=== PATIENT | male | born 1995 | race Hispanic/Latino ===

== ENCOUNTER 2022-07-06 10:56 | Emergency (ER) | payer BC ==
[2022-07-06] MEDS ORDERED: ONDANSETRON 4 MG (ODT) TAB ONE (13:46)
[2022-07-06] MEDS ORDERED: MECLIZINE HCL 12.5 MG TAB ONE (13:48)
[2022-07-06] MEDS ORDERED: NA CHLORIDE 0.9% 1,000 ML ONE (13:48)
[2022-07-06 13:55] LABS: Absolute Lymphocytes (CBC) 0.8 K/uL (0.7-4.9); Hematocrit 40.2 % (39.6-49.0); Lymphocytes % 5.5 % (15.3-44.8); MCV 84.7 fL (80-100); MPV 8.4 fL (7.6-11.3); RBC Red Blood Cell Count 4.75 M/uL (4.33-5.43)
[2022-07-06 14:11] LABS: Potassium 3.9 mmol/L (3.5-5.1)
--- NOTE | 2022-07-06 14:51 | RAD REPORT ---
EXAM DESCRIPTION: CT - Head Brain Wo Cont - 07/06/2022 2:39 pm CLINICAL HISTORY: dizziness, ringing in right ear COMPARISON: No comparisons TECHNIQUE: All CT scans are performed using dose optimization technique as appropriate and may inclu de automated exposure control or mA/KV adjustment according to patient size. FINDINGS: No intracranial hemorrhage, hydrocephalus or extra-axial fluid collection.No areas of brai n edema or evidence of midline shift. The paranasal sinuses and mastoids are clear. The calvarium is intact. IMPRESSION: No acute intracranial abnormality.
--- NOTE | 2022-07-06 15:33 | EDPHYS ---
Physician Documentation [facility] Name: Chao Odom Age: 26 yrs Sex: Male : 1995 Arrival Date: 07/06/2022 Time: 11:08 Bed DIS4 Private MD: ED Physician Eleuterio Pandya HPI: 07/06 23:55 This 26 yrs old Male presents to ER via Wheelchair with complaints of kb Nausea/Vomiting. 23:54 Severity of symptoms: At their worst the symptoms were moderate in the emergency kb department the symptoms are unchanged. The patient has not experienced similar symptoms in the past. The patient has not recently seen a physician. Patient reports ringing in the ear that started on Monday, went to [place] [facility] but was not diagnosed with anything. Today started having dizziness with nausea and vomiting. Ringing has been constant since onset.. 23:55 The patient presents with tinnitus. The complaints affect the right ear. Onset: The kb symptoms/episode began/occurred 4 day(s) ago. Modifying factors: The symptoms are alleviated by nothing, the symptoms are aggravated by nothing. Associated signs and symptoms: Pertinent positives: tinnitus. Historical: - Allergies: 12:11 No Known Allergies; vg1 - Home Meds: 12:11 None [Active]; vg1 - PMHx: 12:11 None; vg1 - PSHx: 12:11 None; vg1 - Immunization history:: Client reports having NOT received the Covid vaccine. - Social history:: Smoking status: Reported history of juuling and/or vaping. ROS: 23:53 ENT: Negative for injury, pain, and discharge. kb 23:53 Abdomen/GI: Positive for nausea and vomiting. 23:53 Neuro: Positive for dizziness, tinnitus. 23:53 All other systems are negative. Exam: 14:10 Constitutional: This is a well developed, well nourished patient who is awake, alert, kb and in no acute distress. Head/Face: Normocephalic, atraumatic. Eyes: Pupils equal round and reactive to light, extra-ocular motions intact. Lids and lashes normal. Conjunctiva and sclera are non-icteric and not injected. Cornea within normal limits. Periorbital areas with no swelling, redness, or edema. ENT: Moist Mucous membranes Cardiovascular: Regular rate and rhythm with a normal S1 and S2. No gallops, murmurs, or rubs. No pulse deficits. Respiratory: Respirations even and unlabored. No increased work of breathing. Talking in full sentences Abdomen/GI: Soft, non-tender. No distention Skin: Warm, dry with normal turgor. Normal color. MS/ Extremity: Pulses equal, no cyanosis. Neurovascular intact. Full, normal range of motion. Neuro: Awake and alert, GCS 15, oriented to person, place, time, and situation. Moves all extremities. Normal gait. Psych: Awake, alert, with orientation to person, place and time. Behavior, mood, and affect are within normal limits. 14:10 ENT: External ear(s): are unremarkable, Ear canal(s): are normal, TM's: are normal. 14:10 ECG was reviewed by the Attending Physician. Vital Signs: 12:10 BP 103 / 57; Pulse 72; Resp 16; Temp 97.7(TE); Pulse Ox 100% on R/A; Weight 54.43 kg; vg1 Height 5 ft. 8 in. (172.72 cm); Pain 0/10; 15:36 BP 109 / 55; Pulse 59; Resp 16; Temp 98.0; Pulse Ox 100% ; kc6 12:10 Body Mass Index 18.25 (54.43 kg, 172.72 cm) vg1 MDM: 13:32 Patient medically screened. kb 14:11 Data reviewed: vital signs, nurses notes. Data interpreted: Pulse oximetry: on room air kb is 100 %. Interpretation: normal. 15:28 Counseling: I had a detailed discussion with the patient and/or guardian regarding: the kb historical points, exam findings, and any diagnostic results supporting the discharge/admit diagnosis, lab results, radiology results, the need for outpatient follow up, a family practitioner, to return to the emergency department if symptoms worsen or persist or if there are any questions or concerns that arise at home. 15:29 ED course: Pt has appt with ENT for follow up tomorrow. . kb 07/06 13:32 Order name: CBC with Diff kb 07/06 13:32 Order name: Basic Metabolic Panel; Complete Time: 14:13 kb 07/06 13:41 Order name: CPK; Complete Time: 14:21 kb 07/06 14:13 Order name: CT Head Brain wo Cont; Complete Time: 14:53 kb 07/06 13:32 Order name: IV Start; Complete Time: 13:49 kb 07/06 13:33 Order name: EKG; Complete Time: 13:34 kb 07/06 13:33 Order name: EKG - Nurse/Tech; Complete Time: 14:15 kb EC:10 Rate is 63 beats/min. Rhythm is regular. QRS [place] is Normal. [place] interval is normal at kb 158 msec. QRS interval is normal at 104 msec. QT interval is normal at 446 msec. Administered Medications: 13:37 Drug: Zofran (Ondansetron) 4 mg Route: PO; kb 15:39 Follow up: Response: No adverse reaction ss 13:45 Drug: NS 0.9% 1000 ml Route: IV; Rate: 1000 ml; Site: right antecubital; kb 15:39 Follow up: IV Status: Completed infusion ss 13:46 Drug: Meclizine 25 mg Route: PO; kb 15:39 Follow up: Response: No adverse reaction ss Disposition Summary: 07/06/22 15:31 Discharge Ordered Location: Home kb Condition: Stable kb Diagnosis - Tinnitus, right ear kb - Dizziness and giddiness kb Followup: kb - With: Emergency Department - When: As needed - Reason: Worsening of condition Followup: kb - With: Private Physician - When: 2 - 3 days - Reason: Recheck today's complaints, Continuance of care, Re-evaluation by your physician Discharge Instructions: - Discharge Summary Sheet kb - Tinnitus kb - Vertigo, [id number] kb - Dizziness, [id number] kb Forms: - Medication Reconciliation Form kb - Thank You Letter kb - Antibiotic Education kb - Prescription Opioid Use kb - Work release form kb Prescriptions: - Meclizine 25 mg Oral Tablet - take 1 tablet by ORAL route every 8 hours As needed; 30 tablet; Refills: 0, kb Product Selection Permitted - Zofran 4 mg Oral Tablet - take 1 tablet by ORAL route every 8 hours As needed; 20 tablet; Refills: 0, kb Product Selection Permitted Addendum: 07/07/2022 20:09 Co-signature as Attending Physician, Eleuterio Pandya MD. r n Signatures: Dispatcher [employer] EDJennifer Valles, TREATING ENGINEER-C TREATING ENGINEER-Sidb Eleuterio Pandya MD MD rn Garcia, Victoria, RN RN vg1 Sharmaine Cortez RN ss
--- NOTE | 2022-07-06 15:33 | ER ---
Nurse's Notes [facility] Name: Chao Odom Age: 26 yrs Sex: Male : 1995 Arrival Date: 07/06/2022 Time: 11:08 Bed DIS4 Private MD: Diagnosis: Tinnitus, right ear;Dizziness and giddiness Presentation: 07/06 12:10 Chief complaint: Patient states: Right ear ringing x 2 days with dizziness and NV. vg1 Coronavirus screen: Vaccine status: Patient reports being unvaccinated. Client denies travel out of the [place] in the last 14 days. Ebola Screen: Patient denies exposure to infectious person. Patient denies travel to an Ebola-affected area in the 21 days before illness onset. Initial Sepsis Screen: Does the patient meet any 2 criteria? No. Patient's initial sepsis screen is negative. Does the patient have a suspected source of infection? No. Patient's initial sepsis screen is negative. Risk Assessment: Do you want to hurt yourself or someone else? Patient reports no desire to harm self or others. Onset of symptoms was July 04, 2022. 12:10 Method Of Arrival: Wheelchair vg1 12:10 Acuity: MYAH 3 vg1 Triage Assessment: 12:11 General: Appears uncomfortable, Behavior is calm, cooperative. Pain: Complains of pain vg1 in right ear Pain began 2-3 days ago. EENT: Reports ringing in right ear. GI: Pt is actively vomiting Reports nausea, vomiting. Historical: - Allergies: 12:11 No Known Allergies; vg1 - Home Meds: 12:11 None [Active]; vg1 - PMHx: 12:11 None; vg1 - PSHx: 12:11 None; vg1 - Immunization history:: Client reports having NOT received the Covid vaccine. - Social history:: Smoking status: Reported history of juuling and/or vaping. Screenin:41 Abuse screen: Denies threats or abuse. Denies injuries from another. Nutritional ss screening: No deficits noted. Tuberculosis screening: Never had TB. Fall Risk None identified. Assessment: 14:41 Reassessment: Back from CT at this time. ss Vital Signs: 12:10 BP 103 / 57; Pulse 72; Resp 16; Temp 97.7(TE); Pulse Ox 100% on R/A; Weight 54.43 kg; vg1 Height 5 ft. 8 in. (172.72 cm); Pain 0/10; 15:36 BP 109 / 55; Pulse 59; Resp 16; Temp 98.0; Pulse Ox 100% ; kc6 12:10 Body Mass Index 18.25 (54.43 kg, 172.72 cm) vg1 ED Course: 11:08 Patient arrived in ED. mr 12:11 Triage completed. vg1 12:11 Arm band placed on. vg1 13:32 Jennifer Jaffe FNP-C is [facility]. kb 13:32 Eleuterio Pandya MD is Attending Physician. kb 13:49 Inserted saline lock: 20 gauge in right antecubital area, using aseptic technique. kc6 Blood collected. 13:49 CPK Sent. kc6 13:49 Basic Metabolic Panel Sent. kc6 13:49 CBC with Diff Sent. kc6 14:40 CT Head Brain wo Cont In Process Unspecified. EDMS 14:41 Patient has correct armband on for positive identification. Bed in low position. ss 15:38 Sharmaine Cortez, RN is Primary Nurse. ss 15:38 No provider procedures requiring assistance completed. IV discontinued, intact, ss bleeding controlled, No redness/swelling at site. Pressure dressing applied. Administered Medications: 13:37 Drug: Zofran (Ondansetron) 4 mg Route: PO; kb 15:39 Follow up: Response: No adverse reaction ss 13:45 Drug: NS 0.9% 1000 ml Route: IV; Rate: 1000 ml; Site: right antecubital; kb 15:39 Follow up: IV Status: Completed infusion ss 13:46 Drug: Meclizine 25 mg Route: PO; kb 15:39 Follow up: Response: No adverse reaction ss Outcome: 15:31 Discharge ordered by . kb 15:38 Discharged to home via wheelchair, with family. ss 15:38 Condition: improved 15:38 Discharge instructions given to patient, family, Instructed on discharge instructions, follow up and referral plans. medication usage, Demonstrated understanding of instructions, follow-up care, medications, Prescriptions given X 2. 15:39 Patient left the ED. ss Signatures: Dispatcher [employer] EDMS Jennifer Jaffe FNP-C FNP-Man Melanie Ybarra mr Sharmaine Cortez, RN RN Diana White, RN RN vg1 Didi Esteban kc6
[2022-07-07 04:22] VITALS: O2SAT 100
[2022-07-07 04:32] VITALS: BP 109/55; TEMP 98
--- NOTE | 2022-07-07 13:37 | EKG ---
Test Date: 2022-07-06 Test Time: 14:07:33 Brands Editor: KV MEASUREMENT RESULTS: Intervals: Rate: 63 [place]: 158 QRSD: 104 QT: 436 QTc: 446 [place]: P: 64 OH: 158 QRS: 74 T: 68 INTERPRETIVE STATEMENTS: Normal sinus rhythm with sinus arrhythmia Normal ECG No previous ECG available for comparison Electronically Signed On 07-07-22 13:35:02 CDT by Remington Multani
== END 2022-07-06 15:39 | disposition home or self-care (01) ==
LOC: ER 10:56
DX: H93.11 Tinnitus, right ear (principal); R11.2 Nausea with vomiting, unspecified
CPT/HCPCS: 96361; 93005; 85025; 80048; 36415; 82550; 70450; 96360; 99284; J8597; Q0162; J7030